=== PATIENT | male | born 1960 | race Caucasian/White ===

== ENCOUNTER 2018-07-23 18:22 | Emergency (ER) | payer OTHER ==
[~2018-07-23 18:22] MED LIST: Iopamidol 370 76% 100 ML VIAL ONE; Sodium Chloride 0.9% 1,000 ML BAG ONE; Sodium Chloride 0.9% 100 ML BAG ONE
[2018-07-23] MEDS ORDERED: Prochlorperazine 10 MG/2 ML VIAL ONE (19:20)
[2018-07-23 19:23] LABS: #Lymphocytes 1.3 thou/uL (1.20-3.40); #Monocytes 0.3 thou/uL (0.11-0.59); %Basophils 0.5 % (0.0-1.0); %Eosinophils 0.2 % (0.0-10.0); %Lymphocytes 13.5 % (21.0-51.0); %Monocytes 3.2 % (0.0-10.0); %Neutrophils 82.7 % (42.0-75.0); Hemoglobin 18.2 g/dL (14.0-18.0); Mean Corpuscular HGB CONC 34.1 g/dL (32.0-36.0); Mean Corpuscular Hemoglobin 30.7 pg (27.0-31.0); Mean Corpuscular Volume 90.2 fL (78.0-98.0); Mean Platelet Volume 7.8 fL (7.4-10.4); Platelet Count 301 thou/uL (130-400); RBC Distribution Width 12.5 % (11.5-14.5); Red Blood Cell (RBC) Count 5.91 mill/uL (4.70-6.10); White Blood Cell (WBC) Count 9.6 thou/uL (4.8-10.8)
[2018-07-23 19:43] LABS: ALT (SGPT) 19 U/L (8-55); AST (SGOT) 14 U/L (5-34); Albumin 4.1 g/dL (3.5-5.0); Alkaline Phosphatase 50 U/L (40-150); Anion Gap 18 mmol/L (10-20); BUN (Urea Nitrogen) 34 mg/dL (8.4-25.7); Calc. Creatinine Clearance 0 mL/min (70-130); Carbon Dioxide 22 mmol/L (22-29); Chloride 100 mmol/L (98-107); Estimated GFR-MDRD 40; Globulin 3.1 g/dL (2.4-3.5); Glucose 126 mg/dL (70-105); Potassium 3.7 mmol/L (3.5-5.1); Protein, Total 7.2 g/dL (6.0-8.3); Sodium 136 mmol/L (136-145)
--- NOTE | 2018-07-23 20:33 | CT ---
CT OF ABDOMEN AND PELVIS PERFORMED WITH CONTRAST ENHANCEMENT: 07/23/18 HISTORY: Abdominal pain. The lung bases are clear of infiltrates. The liver shows suggestion of some fatty change. The spleen and pancreas regions are unremarkable. A gallstone is noted. Right and left adrenal glands and right and left kidneys are normal in size. There is no significant periaortic or mesenteric lymphadenopathy. CT OF PELVIS PERFORMED WITH CONTRAST ENHANCEMENT: No adenopathy, mass or free fluid. Prostate calcifications are seen. Suggestion of some mild bladder wall thickening. There appears to be chain type suture material in the region of the appendix. IMPRESSION: 1. Gallstones. 2. Suggestion of some fatty change of the liver. 3. Small hiatal hernia. 4. Mild bladder wall thickening. POS: [facility]
[2018-07-23] MEDS ORDERED: Dexamethasone 10 MG/ML VIAL ONE (20:43)
[2018-07-23] MEDS ORDERED: Famotidine In NaCl 20 mg/50 ml Premix Bag ONE (20:43)
[2018-07-23] MEDS ORDERED: HYDROcodone/Acetaminophen 5/325 mg Tablet ONE (21:39)
== END 2018-07-23 21:45 | disposition home or self-care (01) ==
LOC: MADERS 18:22
DX: T78.40XA Allergy, unspecified, initial encounter (principal); K80.20 Calculus of gallbladder without cholecystitis without obstruction; E03.9 Hypothyroidism, unspecified; E78.5 Hyperlipidemia, unspecified; I10 Essential (primary) hypertension
CPT/HCPCS: 74177; 80053; 83880; 84443; 85025; 93005; 96361; 96365; 96375; J0780; J1100; J7050